=== PATIENT | male | born 1995 | race African-American/Black ===

== ENCOUNTER 2016-06-13 02:39 | Emergency (ER) | payer MEDICAID ==
[~2016-06-13] VITALS: Ht 167.6 cm; Wt 110.0 kg
[~2016-06-13 02:39] MED LIST: ALBU6.7H INH
[2016-06-13 02:41] VITALS: BP 147/73; PULSE 125; RESP 18; TEMP 98.2; O2SAT 99
--- NOTE | 2016-06-13 02:50 | PD ---
HPI Chief Complaint: Injury Time Seen by Provider: 02:44 Travel History International Travel<30 days: No Contact w/Intl Traveler<30days: No Traveled to known affect area: No History of Present Illness HPI [id number] male presents for evaluation of left hand pain. 2 days ago he was cleaning some dishes in the sink at work when he hit his left hand against the metal bar that was in the sink. Since then he has had pain in the left first MCP joint. The pain is a mild aching pain that is worse with movement. He denies any other injuries and he has no other complaints at this time. PFSH Past Medical History Asthma: Yes Autoimmune Disease: No Anxiety: No Depression: No Cardiovascular Problems: No Genitourinary: No Musculoskeletal: No Neurologic: No Psychiatric: No Respiratory: Yes Immunizations Current: Yes Social History Alcohol Use: No Tobacco Use: No Substance Use: No Allergies-Medications (Allergen,Severity, Reaction): Coded Allergies: No Known Allergies (Verified , 06/13/16) Reported Meds & Prescriptions Reported Meds & Active Scripts Active No Active Prescriptions or Reported Medications Review of Systems Musculoskeletal: Positive: Pain, No: Limited ROM Skin: Positive Other (denies open wounds) Physical Exam Narrative GENERAL: Well-developed well-nourished male in no acute distress SKIN: Warm and dry. No bruising or soft tissue swelling Extremities: Mild tenderness to palpation of dorsal left second MCP joint. No obvious deformity, no joint swelling, no range of motion limitation. Distal sensation preserved, capillary refill less than 2 seconds. Data Data Last Documented VS Vital Signs Date Time Temp Pulse Resp B/P Pulse Ox O2 Delivery O2 Flow Rate FiO2 06/13/16 02:41 98.2 125 18 147/73 99 Room Air Orders Hand, Complete ([id number]) (06/13/16 ) Ibuprofen (Motrin) (06/13/16 03:00) MDM Medical Decision Making Medical Screen Exam Complete: Yes Emergency Medical Condition: Yes Medical Record Reviewed: Yes Differential Diagnosis Contusion, strain, sprain, fracture Narrative Course X-ray imaging of the left hand was obtained and is negative for fracture. He appears to have a contusion to his left hand. Recommended [id number] Tylenol or Motrin, cool compresses. He is stable for discharge. Diagnosis Primary Impression: Contusion of left hand Qualified Code: S60.222A - Contusion of left hand, initial encounter Departure Forms: Tests/Procedures, Work Release Enter return to work date: Jun 14, 2016 Additional Instructions: Avoid strenuous activity. Tylenol or Motrin for pain. Med/Other Pt SpecificInfo: No Change to Meds Scripts No Active Prescriptions or Reported Meds Disposition: 01 DISCHARGE HOME Condition: Stable Jose Angel Hale Jun 13, 2016 02:50
[2016-06-13] MEDS: IBUPROFEN 800 MG TAB PO ONE (03:14)
--- NOTE | 2016-06-13 03:22 | RADRPT ---
EXAM DATE/TIME: 06/13/2016 03:06 [facility] COMPARISON: No previous studies available for comparison. 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 MEDICAL HISTORY : None. SURGICAL HISTORY : None. ENCOUNTER: Initial ACUITY: 2 days PAIN SCORE: 2/10 LOCATION: Left 2nd MCPJ. FINDINGS: Three view examination of the left hand demonstrates no soft tissue swelling, dislocation, or fractur e. The carpal bones appear intact. The interphalangeal and metacarpophalangeal joints are intact. Bony mineralization is normal. CONCLUSION: No acute disease. Beto Spivey MD on June 13, 2016 at 3:18 Board Certified Radiologist. This report was verified electronically.
== END 2016-06-13 03:48 | disposition home or self-care (01) ==
LOC: NEPK 02:39
DX: S60.222A Contusion of left hand, initial encounter (principal); J45.909 Unspecified asthma, uncomplicated; W22.8XXA Striking against or struck by other objects, initial encounter; Y99.0 Civilian activity done for income or pay
CPT/HCPCS: 73130; 99283